=== PATIENT | male | born 1985 | race Caucasian/White ===

== ENCOUNTER 2018-01-27 23:06 | Emergency (ER) | payer SELFPAY ==
[2018-01-27 23:09] VITALS: BMI 25.0
--- NOTE | 2018-01-27 23:13 | PDOC ---
History of Present Illness - General History Source: Patient, Decontamination Technician Used Exam Limitations: No Limitations <Kailyn Xiong - Last Filed: 01/28/18 00:22> <Jordan Mccann - Last Filed: 01/28/18 02:26> - General Chief Complaint: Chest Pain Stated Complaint: CHEST PAIN Time Seen by Provider: 01/27/18 23:12 - History of Present Illness Initial Comments: 01/28/18 00:22 The patient is a 32 year old male with no significant past medical history presents to the emergency department with chest pain. The patient reports pinching pain to the anterior left chest wall, aggravated by deep inspiration, presenting around 6-7:00 in the evening. The patient reports he suffered a fall 6 days prior, due to intoxication the patient is unable to recall details of the incident. Patient denies prior similar incident. Denies any known trauma to the chest. Denies fever or chills. Denies recent travel. Allergies: NKDA Social history: Denies the use of cigarettes or recreation drugs. Reports the social use of alcohol. Reports smoking hookah last week. Surgical history: None reported PCP: None reported (Kailyn Xiong) Past History <Kailyn Xiong - Last Filed: 01/28/18 00:22> - Suicide/Smoking/Psychosocial Hx Smoking History: Never smoked Have you smoked in the past 12 months: No Information on smoking cessation initiated: No Hx Alcohol Use: No Drug/Substance Use Hx: No <Jordan Mccann - Last Filed: 01/28/18 02:26> - Past Medical History Allergies/Adverse Reactions: Allergies Allergy/AdvReac Type Severity Reaction Status Date / Time No Known Allergies Allergy Verified 01/27/18 23:09 Review of Systems - Review of Systems Able to Perform ROS?: Yes <Kailyn Xiong - Last Filed: 01/28/18 00:22> <Jordan Mccann - Last Filed: 01/28/18 02:26> - Review of Systems Comments:: 01/28/18 00:23 CONSTITUTIONAL: No fever, no chills, no fatigue EYES: No visual changes ENT: No ear pain, no sore throat CARDIOVASCULAR: (+) chest pain, no palpitations RESPIRATORY: No cough, no SOB GI: No abdominal pain, no nausea, no vomiting, no constipation, no diarrhea GENITOURINARY: No dysuria, no frequency, no hematuria MUSKULOSKELETAL: No backpain, no joint pain, no myalgias SKIN: No rash NEURO: No headache (Kailyn Xiong) *Physical Exam <Kailyn Xiong - Last Filed: 01/28/18 00:22> <Jordan Mccann - Last Filed: 01/28/18 02:26> - Vital Signs Last Vital Signs Temp Pulse Resp BP Pulse Ox 98.0 F 79 16 141/67 100 01/27/18 23:08 01/27/18 23:08 01/27/18 23:08 01/27/18 23:08 01/27/18 23:08 - Physical Exam Comments: 01/28/18 00:23 CONSTITUTIONAL: Well-appearing; well-nourished; in no apparent distress HEAD: Normocephalic; atraumatic EYES: PERRL; EOM intact ENMT: External appears normal; normal oropharynx NECK: Supple; non-tender; no cervical lymphadenopathy CARD: Normal S1, S2; no murmurs, rubs, or gallops RESP: Normal chest excursion with respiration; breath sounds clear and equal bilaterally; no wheezes, rhonchi, or rales ABD: Soft, non-distended; non-tender; no palpable organomegaly, no palpable hernias EXT: Normal ROM in all four extremities; non-tender to palpation; distal pulses intact SKIN: Warm, dry, no rash NEURO: No focal neurological deficiencies. (Kailyn Xiong) - RADIOLOGY Radiology Studies Ordered: Category Date Time Status CHEST PA & LAT [RAD] Stat Radiology 01/28/18 00:50 Taken - Medications Given in the ED: ED Medications Discontinued Medications Generic Name Dose Route Start Last Admin Trade Name Freq PRN Reason Stop Dose Admin Ketorolac Tromethamine 60 mg 01/28/18 00:00 01/28/18 00:14 Toradol Injection - IM 01/28/18 00:01 60 mg ONCE ONE Administration Medical Decision Making <Kailyn Xiong - Last Filed: 01/28/18 00:22> <Jordan Mccann - Last Filed: 01/28/18 02:26> - Medical Decision Making 01/28/18 02:11 32-year-old male presents to the ER with pleuritic left-sided chest discomfort. In the ER, patient is afebrile, hemodynamically stable with reproducible left anterior and lateral chest wall tenderness to palpation without subcutaneous emphysema or rash. Chest x-ray reveals no evidence of infiltrate or effusion or pneumothorax. No evidence of rib fractures is present at this time. Patient reports improvement after administration of Toradol. Patient is negative for PE by the Perc rule. I do not suspect ACS/PE/dissection at this time. Will discharge with NSAIDs with outpatient follow-up. (Jordan Mccann) *DC/Admit/Observation/Transfer <Kailyn Xiong - Last Filed: 01/28/18 00:22> <Jordan Mccann - Last Filed: 01/28/18 02:26> Diagnosis at time of Disposition: Chest wall pain - Discharge Dispostion Disposition: HOME Condition at time of disposition: Stable - Referrals Referrals: Eliseo Jaquez MD [Staff Physician] - - Patient Instructions Printed Discharge Instructions: DI for Atypical Chest Pain Additional Instructions: Take ibuprofen-400 mg every 6 hours with food. Follow-up with medical clinic for further evaluation and treatment. Return immediately for worsening symptoms. - Attestations Scribe Attestion: 01/28/18 00:24 Documentation prepared by Kailyn Xiong, acting as medical nurse for Jordan Mccann MD. (Kailyn Xiong) Physician Attestion: 01/28/18 02:03 The documentation was prepared by the scribe under my direct supervision. I have reviewed the documentation which correctly represents the findings, medical decision-making and critical action taken by me. (Jordan Mccann)
[2018-01-28] MEDS ORDERED: KETOROLAC TROMETHAMINE 60 MG/2 ML VIAL IM ONE
[2018-01-28 02:53] VITALS: BP 110/78; PULSE 78; TEMP 98.5
--- NOTE | 2018-02-01 15:38 | EKG ---
Test Reason : Blood Pressure : / mmHG Vent. Rate : 067 BPM Atrial Rate : 067 BPM P-R Int : 142 ms QRS Dur : 084 ms QT Int : 404 ms P-R-T Axes : 048 069 037 degrees QTc Int : 426 ms NORMAL SINUS RHYTHM NORMAL ECG NO PREVIOUS ECGS AVAILABLE Confirmed by MADAY GODOY MD ([id number]) on 02/01/2018 3:37:54 PM Referred By: Confirmed By:MADAY GODOY MD
== END 2018-01-28 02:53 | disposition home or self-care (01) ==
LOC: JER 23:06
PROC: 3E0333Z Introduction of Anti-inflammatory into Peripheral Vein, Percutaneous Approach (ICD-10-PCS; principal; 2018-01-27)
PROC: 3E0233Z Introduction of Anti-inflammatory into Muscle, Percutaneous Approach (ICD-10-PCS; 2018-01-27)
DX: R07.89 Other chest pain (principal)
CPT/HCPCS: 71046-TC-FY; 93005; 93010; 99282-25